=== PATIENT | female | born 1970 | race Caucasian/White ===

== ENCOUNTER 2018-06-20 19:42 | Outpatient (CLI) | payer OTHER ==
--- NOTE | 2018-06-21 08:04 | Ultrasound Report ---
Reason: ABDM PAIN Procedure Date: 06/20/2018 Accession Number: [id number] / [id number] Procedure: US - Abdomen Limited CPT Code: FULL RESULT: EXAM: ABDOMEN ULTRASOUND LIMITED EXAM DATE: 06/20/2018 08:22 PM. CLINICAL HISTORY: Left lower quadrant abdominal pain. COMPARISON: None. TECHNIQUE: Real-time scanning was performed with static images obtained. IMPRESSION: No mass or fluid collection seen in the reported region of pain in the left lower quadrant. If there is continued pain, consider CT. RADIA
== END 2018-06-20 19:43 | disposition home or self-care (01) ==
LOC: DI 19:42
PROVIDERS: ATTEND Registered Nurse
DX: S39.011A Strain of muscle, fascia and tendon of abdomen, initial encounter (principal); R10.12 Left upper quadrant pain
CPT/HCPCS: 76705

== ENCOUNTER 2021-09-19 12:40 | Emergency (ER) | payer OTHER ==
[2021-09-19 12:53] VITALS: BP 149/98
--- NOTE | 2021-09-19 13:33 | ED Physician Documentation ---
PD HPI LOWER EXT INJURY - Stated complaint Stated Complaint: RT FT INJ - Chief complaint Chief Complaint: Ext Problem - History obtained from History obtained from: Patient - History of Present Illness PD HPI LOW EXT INJURY LOCATION: Right, Foot Where injury occurred: Home Timing - onset: Yesterday Timing - duration: Days (1) Timing - details: Gradual onset Pain level max: 10 Pain level now: 6 Improved by: Rest Worsened by: Moving, Palpating Associated symptoms: No: Weakness, Numbness, Tingling, Swelling, Discolored Contributing factors: No: Anticoagulated - Additional information Additional information: Patient is a 50-year-old female who states that she was out doing yard work yesterday when she developed pain in her right foot last night. Worse with movement, better with rest. Also better with ibuprofen. No swelling. No discoloration. Has not had similar symptoms previously. Review of Systems Constitutional: denies: Fever, Chills GI: denies: Nausea, Vomiting, Diarrhea Musculoskeletal: denies: Neck pain, Back pain, Extremity pain Neurologic: denies: Headache PD PAST MEDICAL HISTORY - Past Medical History Past Medical History: No - Past Surgical History Past Surgical History: No - Present Medications Home Medications: Ambulatory Orders Medication Instructions Recorded Confirmed Meloxicam [Mobic] 7.5 mg PO BID PRN #20 tablet 09/19/21 - Allergies Allergies/Adverse Reactions: Allergies Allergy/AdvReac Type Severity Reaction Status Date / Time Sulfa (Sulfonamide Allergy Edema Verified 09/19/21 12:53 Antibiotics) PD ED PE NORMAL - Vitals Vital signs reviewed: Yes - General General: Alert and oriented X 3, No acute distress - HEENT HEENT: Moist mucous membranes - Respiratory Respiratory: No respiratory distress, Clear bilaterally - Derm Derm: Warm and dry - Extremities Extremities: Other (No swelling or deformity over the right foot. Tenderness palpation along the plantar aspect of the foot, over the plantar fascia. Neurovascularly intact) - Neuro Neuro: Alert and oriented X 3 - Psych Psych: Normal mood, Normal affect Results - Vitals Vitals: Vital Signs - 24 hr 09/19/21 12:47 Temperature 36.6 C Heart Rate 81 Respiratory 17 Rate Blood Pressure 149/98 H O2 Saturation 99 Oxygen O2 Source Room air - Rads (name of study) Right foot x-ray Radiology: Final report received, EMP read contemporaneously, See rad report (Plantar calcaneal heel spur with adjacent soft tissue thickening. Correlate for plantar fascitis. ) PD MEDICAL DECISION MAKING - ED course Complexity details: considered differential, d/w patient ED course: 50-year-old female with what appears to be plantar fasciitis. We will continue supportive care, anti-inflammatory medications, stretching, arch supports. Patient will follow up with her doctor for further care. Patient counseled regarding signs and symptoms for which I believe and urgent re-evaluation would be necessary. Patient with good understanding of and agreement to plan and is comfortable going home at this time This document was made in part using voice recognition software. While efforts are made to proofread this document, sound alike and grammatical errors may occur. Departure - Departure Disposition: 01 Home, Self Care Clinical Impression: Plantar fasciitis Condition: Good Instructions: ED Heel Spur, ED Plantar Fasciitis Follow-Up: your,doctor in 1 week [Other] Prescriptions: Meloxicam [Mobic] 7.5 mg PO BID PRN #20 tablet PRN Reason: Pain Comments: Please follow-up with your doctor for further care. Return if you worsen. As we discussed, try to avoid flat shoes such as sandals and barefoot walking. You want to use shoes with good arch and/or heel support. I would recommend stretching the area several times per day as well. You can find instructions for the stretches on YouTube. You do have a heel spur on x-ray. Your prescriptions were sent to [facility] in [place] Discharge Date/Time: 09/19/21 14:23
--- NOTE | 2021-09-19 13:39 | XRAY Report ---
PROCEDURE: Foot 3 View RT INDICATIONS: R lateral foot pain, no injury TECHNIQUE: 3 views of the foot were acquired. COMPARISON: None. FINDINGS: Plantar calcaneal heel spur with adjacent soft tissue thickening. Osseous structures otherwise normal . No radiopaque foreign body. IMPRESSION: Plantar calcaneal heel spur with adjacent soft tissue thickening. Correlate for plantar fascitis. Reviewed by: Mj Randle MD on 09/19/2021 1:37 PM PDT Approved by: Mj Randle MD on 09/19/2021 1:37 PM PDT Station ID: [id number]
== END 2021-09-19 14:23 | disposition home or self-care (01) ==
LOC: ED 12:40
DX: M72.2 Plantar fascial fibromatosis (principal)
CPT/HCPCS: 99283

== ENCOUNTER 2021-09-20 15:38 | Emergency (ER) | payer OTHER ==
[2021-09-20 15:54] VITALS: BP 156/91
--- NOTE | 2021-09-20 17:08 | ED Physician Documentation ---
PD HPI LOWER EXT INJURY - Stated complaint Stated Complaint: RIGHT SIDE FOOT PX - Chief complaint Chief Complaint: Ext Problem - History obtained from History obtained from: Patient - Additional information Additional information: The patient comes emergency department for chief complaint of right foot pain, ongoing, despite her Mobic. Patient was seen yesterday and had a negative foot x-ray and diagnosed with plantar fasciitis. She states that she is tried taking the Mobic she was prescribed and that her foot just hurts so bad, especially when she walks, that she has good seemed to get any relief. The patient began to have the pain nearly a week ago when she walked around some ill fitting shoes. She states that she thought it would just go away but it did not and that it seems to been getting worse since. She has not yet called podiatry, though she does have the contact information. She is also attempting to get a primary care physician. She is currently wearing some [id number] shoe inserts in her crocs. She is also using crutches to help unburden her painful foot. No redness or swelling. No other complaints at this time. No new injuries. Review of Systems Ten Systems: 10 systems reviewed and negative Constitutional: reports: Reviewed and negative Eyes: reports: Reviewed and negative Ears: reports: Reviewed and negative Nose: reports: Reviewed and negative Throat: reports: Reviewed and negative Cardiac: reports: Reviewed and negative Respiratory: reports: Reviewed and negative GI: reports: Reviewed and negative : reports: Reviewed and negative Skin: reports: Reviewed and negative Musculoskeletal: reports: Extremity pain, Pain with weight bearing Neurologic: reports: Reviewed and negative Psychiatric: reports: Reviewed and negative Endocrine: reports: Reviewed and negative Immunocompromised: reports: Reviewed and negative PD PAST MEDICAL HISTORY - Past Surgical History Past Surgical History: No - Present Medications Home Medications: Ambulatory Orders Medication Instructions Recorded Confirmed Meloxicam [Mobic] 7.5 mg PO BID PRN #20 tablet 09/19/21 09/20/21 HYDROcod/ACETAM 5/325 [[place] 5/325] 1 - 2 tablet PO Q6H PRN #10 tablet 09/20/21 - Allergies Allergies/Adverse Reactions: Allergies Allergy/AdvReac Type Severity Reaction Status Date / Time Sulfa (Sulfonamide Allergy Edema Verified 09/20/21 15:50 Antibiotics) - Social History Does the pt smoke?: No Smoking Status: Never smoker PD ED PE NORMAL - Vitals Vital signs reviewed: Yes - General General: Alert and oriented X 3, No acute distress, Well developed/nourished - HEENT HEENT: Atraumatic, PERRL, EOMI, Moist mucous membranes - Neck Neck: Supple, no meningeal sign - Cardiac Cardiac: Strong equal pulses - Respiratory Respiratory: No respiratory distress - Derm Derm: Normal color, Warm and dry, No rash - Extremities Extremities: No deformity, Other (Moderate tenderness focused over right lateral anterior heel. No deformity. No edema or erythema. No fluctuance. No distal fibula tenderness.) - Neuro Neuro: Alert and oriented X 3 - Psych Psych: Normal mood, Normal affect Results - Vitals Vitals: Vital Signs - 24 hr 09/20/21 15:50 Temperature 36.6 C Heart Rate 78 Respiratory 16 Rate Blood Pressure 156/91 H O2 Saturation 98 Oxygen O2 Source Room air PD MEDICAL DECISION MAKING - ED course Complexity details: reviewed old records, considered differential, d/w patient ED course: The patient had also mentioned that she had been told to come in for an MRI by her insurance company. However, I discussed with her that we not only do not have MRI here today, but that It would be unlikely that we would order an emergent MRI in the scenario. I discussed with the patient that she should continue to use the crutches and Mobic. I will prescribe something stronger for pain for at night. We have discussed the usual indications for return. Departure - Departure Disposition: 01 Home, Self Care Clinical Impression: Foot pain, right Condition: Stable Instructions: Heel Pain Prescriptions: HYDROcod/ACETAM 5/325 [[place] 5/325] 1 - 2 tablet PO Q6H PRN #10 tablet PRN Reason: Pain Comments: Your prescription has been electronically transmitted to [facility] in [place], since the [facility] closes at 6:00 on week. Discharge Date/Time: 09/20/21 17:17
== END 2021-09-20 17:17 | disposition home or self-care (01) ==
LOC: ED 15:38
DX: M79.671 Pain in right foot (principal)
CPT/HCPCS: 99282

== ENCOUNTER 2021-12-02 14:23 | Outpatient (CLI) | payer OTHER ==
--- NOTE | 2021-12-03 08:51 | Mammography Report ---
BILATERAL DIGITAL SCREENING MAMMOGRAM 3D/2D: 12/02/2021 CLINICAL: Baseline exam Routine screening. No prior exams were available for comparison. There are scattered fibroglandular elements in both br easts. No significant masses, calcifications, or other findings are seen in either breast. IMPRESSION: NEGATIVE There is no mammographic evidence of malignancy. A 1 year screening mammogram is recommended. This exam was interpreted at Station ID: [id number]. NOTE: For mammograms, a report in lay terms will be sent to the patient. Approximately 15% of breast malignancies will not be visualized mammographically. In the management of a palpable breast mass, a negative mammogram must not discourage biopsy of a clinically suspicious lesion. Electronically Signed By: Jean [email or web address]/[email or web address]:12/02/2021 15:02:41 ACR BI-RADS Category 1: Negative [id number] PARENCHYMAL PATTERN: (A) - The breast(s) demonstrate(s) scattered fibroglandular densities. BI-RADS CATEGORY: (1) - 1 RECOMMENDATION: (ANNUAL) - Recommend routine annual screening mammography. [id number] 1 year screening LATERALITY: (B)
== END 2021-12-02 14:24 | disposition home or self-care (01) ==
LOC: DI 14:23
PROVIDERS: ATTEND Nurse Practitioner Family
DX: Z12.31 Encounter for screening mammogram for malignant neoplasm of breast (principal)

== ENCOUNTER 2022-04-06 09:07 | Outpatient (CLI) | payer OTHER ==
[2022-04-06 09:49] LABS: ALBUMIN 4.3 g/dL (3.2-5.5); ALBUMIN/GLOBULIN RATIO 1.3 (1.0-2.2); ALKALINE PHOSPHATASE 50 IU/L (42-121); ALT ALANINE AMINOTRANSFERASE 19 IU/L (10-60); AST ASPARTATE AMINOTRANSFERASE 19 IU/L (10-42); BILIRUBIN,TOTAL 0.5 mg/dL (0.2-1.0); BUN - BLOOD UREA NITROGEN 14 mg/dL (6-20); CALCIUM 9.3 mg/dL (8.5-10.3); CARBON DIOXIDE - CO2 25 mmol/L (21-32); CHLORIDE 105 mmol/L (101-111); CHOLESTEROL 265 mg/dL; CREATININE 0.9 mg/dL (0.4-1.0); GFR - MDRD 66 (>89); GLUCOSE 103 mg/dL (70-100); HDL CHOLESTEROL 53 mg/dL; LDL CHOLESTEROL,CALCULATED 178 mg/dL; LDL/HDL RATIO 3.4 (<4.4); POTASSIUM 4.2 mmol/L (3.5-5.0); SODIUM 139 mmol/L (135-145); TOTAL PROTEIN 7.6 g/dL (6.7-8.2); TRIGLYCERIDES 171 mg/dL; VLDL CHOLESTEROL 34 mg/dL
== END 2022-04-06 09:08 | disposition home or self-care (01) ==
LOC: LAB 09:07
PROVIDERS: ATTEND Nurse Practitioner Family
DX: E78.5 Hyperlipidemia, unspecified (principal)
CPT/HCPCS: 36415; 80053; 80061; 83721

== ENCOUNTER 2022-04-11 12:40 | Outpatient (CLI) | payer OTHER ==
[2022-04-11 13:37] LABS: THYROID STIMULATING HORMONE 1.38 uIU/mL (0.34-5.60)
== END 2022-04-11 12:41 | disposition home or self-care (01) ==
LOC: LAB 12:40
PROVIDERS: ATTEND Nurse Practitioner Family
DX: E78.5 Hyperlipidemia, unspecified (principal)
CPT/HCPCS: 36415; 84443

== ENCOUNTER 2023-03-27 08:04 | Outpatient (CLI) | payer OTHER ==
[2023-03-27 08:30] LABS: BASOPHILS % (AUTO) 0.5 %; EOSINOPHILS # (AUTO) 0.2 10^3/uL (0.0-0.7); EOSINOPHILS % (AUTO) 3.3 %; HCT - HEMATOCRIT 41.8 % (37.0-47.0); HGB - HEMOGLOBIN 13.8 g/dL (12.0-16.0); LYMPHOCYTES # (AUTO) 2.4 10^3/uL (1.5-3.5); LYMPHOCYTES % (AUTO) 32.5 %; MEAN CORPUSCULAR HEMOGLOBIN 30.3 pg (27.0-31.0); MEAN CORPUSCULAR VOLUME 91.9 fL (81.0-99.0); MEAN PLATELET VOLUME 11.2 fL (7.9-10.8); MONOCYTES # (AUTO) 0.6 10^3/uL (0.0-1.0); MONOCYTES % (AUTO) 7.6 %; NEUTROPHILS # (AUTO) 4.1 10^3/uL (1.5-6.6); PLT - PLATELET COUNT 250 10^3/uL (130-450); RED BLOOD COUNT 4.55 10^6/uL (4.20-5.40); RED CELL DISTRIBUTION WIDTH 13.2 % (12.0-15.0); WHITE BLOOD COUNT 7.3 x10^3/uL (4.8-10.8)
[2023-03-27 08:44] LABS: ALBUMIN 4.3 g/dL (3.2-5.5); ALBUMIN/GLOBULIN RATIO 1.5 (1.0-2.2); ALKALINE PHOSPHATASE 54 IU/L (42-121); ALT ALANINE AMINOTRANSFERASE 16 IU/L (10-60); AST ASPARTATE AMINOTRANSFERASE 16 IU/L (10-42); BILIRUBIN,TOTAL 0.4 mg/dL (0.2-1.0); BUN - BLOOD UREA NITROGEN 17 mg/dL (6-20); CALCIUM 9.3 mg/dL (8.5-10.3); CARBON DIOXIDE - CO2 26 mmol/L (21-32); CHLORIDE 106 mmol/L (101-111); CHOL/HDL RATIO 5.2 (<4.4); CHOLESTEROL 245 mg/dL; CREATININE 0.9 mg/dL (0.6-1.3); GFR - MDRD 66 (>89); GLUCOSE 110 mg/dL (74-104); HDL CHOLESTEROL 47 mg/dL; LDL CHOLESTEROL,CALCULATED 157 mg/dL; LDL/HDL RATIO 3.3 (<4.4); LIPASE 43 U/L (11-82); POTASSIUM 4.1 mmol/L (3.5-4.5); SODIUM 139 mmol/L (135-145); TOTAL PROTEIN 7.1 g/dL (6.4-8.9); TRIGLYCERIDES 207 mg/dL (48-352); VLDL CHOLESTEROL 41 mg/dL
[2023-03-27 11:41] LABS: ESTIMATED AVERAGE GLUCOSE 123 mg/dL (70-100); HEMOGLOBIN A1c% 5.9 % (4.27-6.07)
== END 2023-03-27 08:05 | disposition home or self-care (01) ==
LOC: LAB 08:04
PROVIDERS: ATTEND Naturopath
DX: Z00.00 Encounter for general adult medical examination without abnormal findings (principal); E78.5 Hyperlipidemia, unspecified; R53.83 Other fatigue
CPT/HCPCS: 36415; 80053; 80061; 81599; 83036; 83690; 83695; 83721; 85025

== ENCOUNTER 2023-08-01 07:59 | Outpatient (CLI) | payer OTHER ==
[2023-08-01 08:28] LABS: CHOL/HDL RATIO 4.8 (<4.4); CHOLESTEROL 254 mg/dL; GLUCOSE 108 mg/dL (74-104); HDL CHOLESTEROL 53 mg/dL; LDL CHOLESTEROL,CALCULATED 174 mg/dL; LDL/HDL RATIO 3.3 (<4.4); TRIGLYCERIDES 137 mg/dL (48-352); VLDL CHOLESTEROL 27 mg/dL
[2023-08-01 10:49] LABS: ESTIMATED AVERAGE GLUCOSE 120 mg/dL (70-100); HEMOGLOBIN A1c% 5.8 % (4.27-6.07)
== END 2023-08-01 08:00 | disposition home or self-care (01) ==
LOC: LAB 07:59
PROVIDERS: ATTEND Naturopath
DX: R73.09 Other abnormal glucose (principal); N95.1 Menopausal and female climacteric states; E78.5 Hyperlipidemia, unspecified
CPT/HCPCS: 36415; 80061; 82947; 83001; 83002; 83036; 83721